=== PATIENT | female | born 2000 | race African-American/Black ===

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

== ENCOUNTER 2020-01-14 14:09 | Emergency (ER) | payer OTHER ==
[~2020-01-14] VITALS: Ht 157.5 cm; Wt 90.7 kg
[2020-01-14 14:56] VITALS: BP 137/69
[2020-01-14 17:32] LABS: APPEARANCE,URINE Cloudy (CLEAR); BILIRUBIN,URINE Negative (NEGATIVE); BLOOD, URINE Small Ery/uL (NEGATIVE); COLOR,URINE Yellow (YELLOW); KETONES,URINE Negative (NEGATIVE); LEUKOCYTE ESTERASE ,URINE Negative (NEGATIVE); NITRITE, URINE Negative (NEGATIVE); PH,URINE 5.5 (5.0-8.0); PROTEIN,URINE Negative (NEGATIVE); UGLUCOSE Negative (NEGATIVE); UROBILINOGEN,URINE 0.2 EU/dL (0.2)
[2020-01-14 17:42] LABS: BACTERIA,URINE Moderate /HPF (None Seen); WBC,URINE 0-2 /HPF (0-3)
[2020-01-14 17:43] LABS: CALCIUM OXALATE CRYSTALS,UR Few /HPF (None Seen); SQUAMOUS EPITHELIAL CELL,UR Moderate /HPF (None Seen)
--- NOTE | 2020-01-14 19:02 | NUR ---
PT ELOPED FROM ER.
== END 2020-01-14 19:02 | disposition left against medical advice (07) ==
LOC: ER 14:09
DX: O98.812 Other maternal infectious and parasitic diseases complicating pregnancy, second trimester (principal); B37.3 Candidiasis of vulva and vagina; Z60.2 Problems related to living alone; Z3A.23 23 weeks gestation of pregnancy
CPT/HCPCS: 76805; 81001; 87086; 87210; 87491; 87591; 99284; A6403; 81000-TC; 87186-TC

== ENCOUNTER 2020-10-21 16:00 | Emergency (ER) | payer MEDICAID, OTHER ==
[~2020-10-21] VITALS: Ht 154.9 cm; Wt 97.5 kg
--- NOTE | 2020-10-21 16:21 | NUR ---
called in ed waiting room. no response.
--- NOTE | 2020-10-21 16:48 | NUR ---
PT SELF PRESENTS TO ED CAME W/ C/O SUICIDAL IDEATION X 2 DAYS. STATING "IM STRESSED OUT." DENIES ANY PLAN COUNTER SALES PERSON. DENIES ANY OTHER DISCOMFORT. STABLE VITALS. NAD NOTED. AWAITING MD PINO.
--- NOTE | 2020-10-21 17:35 | NUR ---
cherellep pa at bedside for eval.
--- NOTE | 2020-10-21 18:00 | NUR ---
ADJUSTER PIANO ACTION AT BEDSIDE FOR BLOOD DRAW.
[2020-10-21 18:13] LABS: BASOPHILS # (AUTO) 0.1 /CMM (0.0-0.2); BASOPHILS % (AUTO) 0.7 % (0.0-2.0); EOSINOPHILS % (AUTO) 2.9 % (0.0-6.0); HEMATOCRIT 40 % (33-45); HEMOGLOBIN 12.5 g/dL (11.5-14.8); LYMPHOCYTES # (AUTO) 3.6 /CMM (0.8-4.8); LYMPHOCYTES % (AUTO) 39.1 % (20.0-44.0); MEAN CORPUSCULAR HGB CONC 32 g/dl (31.0-36.0); MEAN CORPUSCULAR VOLUME 75 fL (82-100); MONOCYTES # (AUTO) 0.8 /CMM (0.1-1.30); MONOCYTES % (AUTO) 9.1 % (2.0-12.0); NEUTROPHILS # (AUTO) 4.4 /CMM (1.8-8.9); NEUTROPHILS % (AUTO) 48.2 % (43.0-81.0); PLATELET COUNT (AUTO) 549 /CMM (150-450); RED BLOOD CELL COUNT(AUTO) 5.25 MIL/uL (4.0-5.2); WHITE BLOOD COUNT (AUTO) 9.2 K/uL (4.3-11.0)
[2020-10-21 18:21] LABS: CALCIUM, SERUM 8.8 mg/dL (8.5-10.1); CARBON DIOXIDE 27 mmol/L (21-32); CHLORIDE 107 mmol/L (98-107); CREATININE 0.8 mg/dL (0.6-1.3); GLUCOSE 105 mg/dL (74-106); SODIUM SERUM 142 mmol/L (136-145); UREA NITROGEN, BLOOD 13 mg/dL (7-18)
[2020-10-21 18:30] LABS: ALANINE AMINOTRANSFERASE 17 U/L (12-78); ALBUMIN 3.2 g/dL (3.4-5.0); ALCOHOL, BLOOD < 3 mg/dL (0-0); ALKALINE PHOSPHATASE 85 U/L (46-116); ASPARTATE AMINOTRANSFERASE 16 U/L (15-37); BILIRUBIN,DIRECT 0.1 mg/dL (0.0-0.2); BILIRUBIN,TOTAL 0.3 mg/dL (0.2-1.0); TOTAL PROTEIN, SERUM 7.1 g/dL (6.4-8.2)
[2020-10-21 18:32] LABS: ACETAMINOPHEN < 0 ug/ml (10-30)
[2020-10-21 19:31] LABS: EOSINOPHILS % (MANUAL) 3 % (0-4); LYMPHOCYTES % (MANUAL) 40 % (16-48); MONOCYTES % (MANUAL) 10 % (0-11.0); NEUTROPHILS % (MANUAL) 47 (42-76)
[2020-10-21 19:41] LABS: BILIRUBIN,URINE Negative (NEGATIVE); COLOR,URINE YELLOW (YELLOW); LEUKOCYTE ESTERASE ,URINE Small (NEGATIVE); NITRITE, URINE Negative (NEGATIVE); PROTEIN,URINE Trace mg/dl (NEGATIVE); UGLUCOSE Negative (NEGATIVE); UROBILINOGEN,URINE 0.2 EU/dL (0.2)
[2020-10-21 19:59] LABS: BACTERIA,URINE None seen /HPF (None Seen); SQUAMOUS EPITHELIAL CELL,UR Few /HPF (None Seen); WBC,URINE 0-2 /HPF (0-3)
[2020-10-21 20:00] LABS: CALCIUM OXALATE CRYSTALS,UR Rare /HPF (None Seen)
--- NOTE | 2020-10-21 20:34 | NUR ---
COVID SWAB SENT TO LAB
--- NOTE | 2020-10-21 21:14 | NUR ---
CALL FROM LAB. RAPID COVID NEGATIVE.
[2020-10-22 06:32] VITALS: BP 118/68
--- NOTE | 2020-10-22 08:08 | NUR ---
RECIEVED A CALL FROM [facility]. PATIENT ACCEPTED. NUMBER FOR REPORT. [facility] IS REQUESTING TO SEND PATIENT AFTER 1100. NUMBER FOR REPORT [phone].
--- NOTE | 2020-10-22 10:17 | NUR ---
"SS Consult requested for homelessness: The pt. is a 19 female who came in due to SI with no plan. SW met with pt. bedside ad the pt. is A&O X 4. The pt. states that she has been feeling down and depressed as of late. Per pt. she has been experiencing homelessness for the past 2 months. Patient states her and her , Tamir have been couch surfing. Pt. states she anderson SAFCello support system. Pt. denies ETOH sera and states she only smoke Cannabinoids recreationally. Pt. states she receives food stamps, General relief. Pt. denies HI and denies hallucinations. Pt. states she has a Hx. of Depression and Bipolar Disorder and has been prescribed with Seroquel in the past. Plan: Pt. has been referred to [facility] for psych. treatment and pt. is agreeable to go voluntarily. Pt. signed homeless waiver & it was placed in the pt.'s chart. SW provided pt. with homeless resources and pt. accepted them. AIRAM provided pt with the following resources: Substance Abuse resources provided included: [facility] Substance Abuse Self-Helpline ([facility]) ; CRI -HELP [address] [facility] [place]. [place] [address] ; [facility] [address] [facility] [place] [facility] [address] ; [facility] [address] [facility] [address] ; [facility] [address] [facility] [address] ; [facility] Treatment [facility] [address] [facility] [address] ; [facility] [place] [address] [facility] [address] ; [facility] Substance Abuse Helpline([facility] ; [facility] ; [facility] [place]; [facility] [place]; C[facility] [place]; [facility] Steven Peter; [facility] [place]; [facility]; [facility]; [facility], [facility]. [facility]; Alcoholics Anonymous -SFV; Np-Jqcr-Sbvvjoe ; Marijuana Anonymous -SFV; Narcotics Anonymous www.na.org; Year-round shelters: [facility] [address] [place], [place] [id number] ; [facility] [address] [place] [address]; [facility] [id number] [facility] [address] Winter Shelters: [place] Sharron [place] Provider: [facility] Address: [address], [address] # of Beds: 47 Population Served: [facility] 6 | [facility] Provider: [facility] Last Address: [address], [address] # of Beds: 66 Population Served: [facility] [place] [place] [employer] [place] Provider: First to Serve Address: [address] [facility], [address] # of Beds: 56 Population Served: [facility] [place] [place] Carlo JagjitMindi WeirWahoo Provider: [facility] Address: [address] [facility], [address] # of Beds: 49 Population Served: [facility] 8 | [facility] Provider: First to Serve Address: [address] [facility], [address] # of Beds: 37 Population Served: [facility] [place], [place] Hygiene: [facility]: [address] Adriel Ken[address] ; [facility] [address] [facility] ; [facility] [address], [place] . Food Resources: [place] [facility] at [facility]- [address] [place]; Meet Each Need with Dignity ([employer]) [address] [place]; [facility] Food Pantry [address] [facility]; [facility] [address]47 [facility]. Mental Health resources provided: [facility] [address] [place], [place] [address] ; [facility] [address] [facility] [address], [place], [place] [id number] ; [facility] [address] [place], [place] [id number] ; [facility] [place], [place] [id number] Healthcare Clinics: [facility] [address] [facility], [address] [place]. [place] ; [facility] [address] [facility] [address] [place] [address]; [facility] [place] [address] [facility]. [place] [address] [phone]) [phone] Counseling--Outpatient [facility] [address] [facility], [place] [address] (Specializes in in-depth psychotherapy for emotional distress: anxiety, depression, interpersonal conflicts, life transitions, childhood abuse) [facility] [address] [place] [address] (Assist with solving problem marital difficulties, separation & divorce, aging parents, & grief, chronic & terminal illness) [facility] [address] [place] [address] (Deal with loss & grief, anxiety, marital difficulties) Homebound/Mental Health Services [address], [address] [place] [address] (Provide in-home mental services to people who are incapable of leaving their homes) [facility] for Needs of the Elderly Senior Service/Resource Center [address] [place] [address] [facility] [address] [place], [place] [address] PSYCHIATRIC OUTPATIENT SERVICES [facility] Partial Hospitalization and Intensive Outpatient Program (Managed Care and [place] Only)[address] [address] [facility] [phone] [facility] Partial Hospitalization and Outpatient [id number] [place], [place] [phone] [facility] Partial Hospitalization and Outpatient Cemlvtl7048 [address] [place], [place] [phone] STEVEN ASYA [facility] [id number] [place], [place] [phone] [facility] [place] Partial Hospitalization and Outpatient [id number] [facility] Steven PeterG[place], [phone] "
--- NOTE | 2020-10-22 11:46 | NUR ---
CALLED [facility] FOR TRANSPORT TO [facility]. ETA 1300.
--- NOTE | 2020-10-22 11:48 | NUR ---
REPORT GIVEN TO JORI MCCORMACK FOR YELENA
--- NOTE | 2020-10-22 11:49 | NUR ---
CALLED [facility] FOR TRANSPORT TO [facility]. ETA 1230.
--- NOTE | 2020-10-22 13:10 | NUR ---
REPORT GIVEN TO [facility] FOR [facility]
== END 2020-10-22 11:49 ==
LOC: ER 16:11
DX: R45.851 Suicidal ideations (principal); R10.11 Right upper quadrant pain; F19.10 Other psychoactive substance abuse, uncomplicated; F14.10 Cocaine abuse, uncomplicated; F12.10 Cannabis abuse, uncomplicated; Z20.822 Contact with and (suspected) exposure to COVID-19; F20.9 Schizophrenia, unspecified; Z59.0 Homelessness; F32.9 Major depressive disorder, single episode, unspecified; Z79.899 Other long term (current) drug therapy
CPT/HCPCS: 36415; 76705; 80048; 80076; 80143; 80307; 80320; 81001; 83690; 84703; 85007; 85025; 87086; 87426; 99285; C9803; G0480